=== PATIENT | male | born 1970 | race Caucasian/White ===

== ENCOUNTER 2016-08-03 00:55 | Emergency (ER) | payer OTHER ==
[2016-08-03] MEDS ORDERED: Aspirin 81 MG Tab.Chew PO ONE (01:35)
[2016-08-03] MEDS ORDERED: Sodium Chloride 0.9% 300 ML IV ONE (01:35)
[2016-08-03] MEDS ORDERED: Morphine 4 MG/ML Syringe IVPUSH PRN ×2 (01:35→02:36)
[2016-08-03] MEDS ORDERED: Sodium Chloride 0.9% 1,000 ML IV SCH (01:45)
[2016-08-03] MEDS: Nitroglycerin 0.4 MG Tab.SL SL PRN ×3 (01:46→01:57)
--- NOTE | 2016-08-03 01:47 | EDM.PDOC ---
ED HISTORY OF PRESENT ILLNESS - General Chief Complaint: Chest Pain Stated Complaint: CHEST PAIN Time Seen by Provider: 08/03/16 01:34 Source: Reports: Patient, Family History Limitations: Reports: No limitations - History of Present Illness INITIAL COMMENTS - FREE TEXT/NARRATIVE: Patient today with chest pain substernal and more on the right side of the sternum. The patient has had intermittent chest pains for several weeks. Exertion increases the pain resting believes it. The patient is a diabetic on insulin. The patient recently had an ultrasound of the leg for possible DVT none followed. The patient presented to the emergency room for evaluation and treatment of this chest pain he has not taken aspirin today. Symptom Onset Date: 08/02/16 Timing/Duration: Reports: Hour(s):, Gradual onset Severity: moderate Location, General: Reports: chest Quality: Reports: Ache, Pressure Improves with: Reports: Rest Worsens with: Reports: Breathing, Movement Context, General: Reports: Activity Treatment(s) [employer]: Reports: Insulin, Other medication(s) - Related Data Allergies/ADRs: Allergies Allergy/AdvReac Type Severity Reaction Status Date / Time diazepam [From Valium] Allergy Swelling Verified 08/03/16 01:02 Home Meds: Home Meds Gabapentin [Gabapentin] 1,200 mg PO BID 08/10/13 [History] Insulin Glarg,Human.Rec.Analog [Lantus Solostar] 30 units SUBCNJ BID 08/10/13 [ History] Ascorbate Calcium [Vitamin C] 500 mg PO DAILY 10/29/15 [History] Aspirin [Halfprin] 81 mg PO DAILY 10/29/15 [History] Dulaglutide [Trulicity] 1.5 mg SQ WEEKLY 10/29/15 [History] Famotidine [Take Home: Famotidine 20 MG, 3 Tab Pack] 20 mg PO BID 01/07/16 [ History] Insulin Aspart [Novolog] 5 unit SQ ASDIRECTED PRN 01/07/16 [History] Cyanocobalamin (Vitamin B-12) [B-12] 1,000 mcg PO DAILY 08/03/16 [History] Past Medical History HEENT History: Reports: Impaired vision Cardiovascular History: Reports: High cholesterol Gastrointestinal History: Reports: GERD Musculoskeletal History: Reports: Fracture Neurological History: Reports: Head trauma, Neuropathy, diabetic Endocrine/Metabolic History: Reports: Diabetes, type II - Infectious Disease History Infectious Disease History: Reports: Chicken pox - Past Surgical History HEENT Surgical History: Reports: Other (see below) Other HEENT Surgeries/Procedures: saliva duct opened GI Surgical History: Reports: Appendectomy, Cholecystectomy, EGD, Hernia, inguinal, Hernia repair/other Musculoskeletal Surgical History: Reports: Other (see below) Other Musculoskeletal Surgeries/Procedures:: part of skull removed as child due to fractures Social & Family History - Family History Endocrine/Metabolic: Reports: Diabetes, type II Oncologic: Reports: Breast, Renal - Tobacco Use Smoking Status *Q: Current Every Day Smoker Years of Tobacco use: 25 Packs/Tins Daily: 0.5 Used Tobacco, but Quit: No Second Hand Smoke Exposure: Yes - Caffeine Use Caffeine Use: Reports: Coffee, Soda - Alcohol Use Days Per Week of Alcohol Use: 0 - Recreational Drug Use Recreational Drug Use: No ED ROS GENERAL - Review of Systems Review Of Systems: See Below Constitutional: Reports: weakness, fatigue HEENT: Reports: No symptoms Respiratory: Reports: Pleuritic Chest Pain. Denies: Wheezing Cardiovascular: Reports: Chest pain, Dyspnea on exertion. Denies: Orthopnea, Palpitations, Syncope Endocrine: Reports: fatigue GI/Abdominal: Reports: No symptoms : Reports: frequency, urgency Musculoskeletal: Reports: back pain, leg pain, muscle pain Skin: Reports: no symptoms Neurological: Reports: No Symptoms Psychiatric: Reports: No symptoms Hematologic/Lymphatic: Reports: no symptoms Immunologic: Reports: no symptoms ED EXAM, GENERAL - Physical Exam Exam: See Below Exam Limited By: No limitations General Appearance: alert, WD/WN, anxious, moderate distress Eye Exam: bilateral eye: normal fundi Ears: normal external exam, hearing grossly normal Nose: normal inspection Throat/Mouth: Normal inspection, Normal lips, Normal voice Head: atraumatic, normocephalic. No: facial swelling, sinus tenderness Neck: normal inspection, supple, non-tender Respiratory/Chest: no respiratory distress, lungs clear, normal breath sounds Cardiovascular: normal peripheral pulses, regular rate, rhythm, no murmur GI/Abdominal: normal bowel sounds, soft, non tender, no organomegaly Back Exam: normal inspection Extremities: leg pain Neurological: alert, oriented Psychiatric: normal affect, anxious Skin Exam: Warm, Dry, Intact, Normal color, No rash Course - Vital Signs Last Recorded V/S: Last Vital Signs Temp 98.6 F 08/03/16 01:08 Pulse 82 08/03/16 01:20 Resp 18 08/03/16 02:41 BP 147/83 H 08/03/16 02:54 Pulse Ox 96 08/03/16 02:41 - Orders/Labs/Meds Orders: Active Orders 24 hr Category Date Time Status Cardiac Monitoring [RC] .As Directed Care 08/03/16 01:35 Ordered Cardiac Monitoring [RC] .As Directed Care 08/03/16 02:36 Ordered EKG Documentation Completion [RC] ASDIRECTED Care 08/03/16 01:36 Ordered Pulse Oximetry [RC] CONTINUOUS Care 08/03/16 01:35 Ordered Chest 1V Frontal [CR] Stat Exams 08/03/16 01:36 Ordered Heparin Sodium/D5W [Heparin 25,000 Units in D5W 500 ML] Med 08/03/16 03:00 Ordered 500 ml IV NOW Morphine Med 08/03/16 01:35 Active 4 mg IVPUSH Q10M PRN Morphine Med 08/03/16 02:36 Ordered 4 mg IVPUSH Q10M PRN Nitroglycerin [Nitrostat] Med 08/03/16 01:35 Ordered 0.4 mg SL Q5M PRN Nitroglycerin/D5W [Nitroglycerin 25 MG/D5W 250 ML] 250 Med 08/03/16 02:45 Ordered ml IV TITRATE Sodium Chloride 0.9% @ 125 MLS/HR (1000ml) Med 08/03/16 01:45 Ordered Sodium Chloride 0.9% [Normal Saline] 1,000 ml IV ASDIRECTED EKG 12 Lead [EK] Stat Ther 08/03/16 01:36 Ordered Medication Orders Sodium Chloride (Normal Saline) 1,000 mls @ 125 mls/hr IV ASDIRECTED JOSIAS Last Admin: 08/03/16 01:47 Dose: 125 mls/hr Nitroglycerin/Dextrose (Nitroglycerin 25 Mg/D5w 250 Ml) 25 mg in 250 mls @ 6 mls/hr IV TITRATE JOSIAS; 10 MCG/MIN PRN Reason: Protocol Last Admin: 08/03/16 02:54 Dose: 10 mcg/min, 6 mls/hr Heparin Sodium/Dextrose (Heparin 25,000 Units In D5w 500 Ml) 500 mls @ 20 mls/ hr IV NOW JOSIAS PRN Reason: 1,000 UNITS/HR Morphine Sulfate (Morphine) 4 mg IVPUSH Q10M PRN PRN Reason: Chest Pain Stop: 08/04/16 01:36 Last Admin: 08/03/16 01:49 Dose: 4 mg Morphine Sulfate (Morphine) 4 mg IVPUSH Q10M PRN PRN Reason: Chest Pain Stop: 08/04/16 02:37 Nitroglycerin (Nitrostat) 0.4 mg SL Q5M PRN PRN Reason: Chest Pain Stop: 08/04/16 01:36 Last Admin: 08/03/16 01:57 Dose: 0.4 mg Admin: 08/03/16 01:52 Dose: 0.4 mg Admin: 08/03/16 01:46 Dose: 0.4 mg Labs: Laboratory Tests 08/03/16 08/03/16 08/03/16 Range/Units 01:35 01:35 01:35 WBC 6.2 (4.5-11.0) K/uL RBC 4.43 (4.30-5.90) M/uL Hgb 13.4 D (12.0-15.0) g/dL Hct 39.0 L (40.0-54.0) % MCV 88 (80-98) fL MCH 30 (27-31) pg MCHC 34 (32-36) % Plt Count 210 (150-400) K/uL Neut % (Auto) 63 (36-66) % Lymph % (Auto) 26 (24-44) % [place] % (Auto) 9 H (2-6) % Eos % (Auto) 3 (2-4) % Baso % (Auto) 1 (0-1) % PT 9.9 (9.5-12.0) sec INR 0.94 (0.80-1.20) APTT 28.5 (27.0-36.0) sec Sodium 143 (140-148) mmol/L Potassium 4.0 (3.6-5.2) mmol/L Chloride 105 (100-108) mmol/L Carbon Dioxide 29 (21-32) mmol/L Anion Gap 8.6 (5.0-14.0) mmol/L BUN 11 (7-18) mg/dL Creatinine 0.9 (0.8-1.3) mg/dL Est Cr Clr Drug Dosing 108.07 mL/min Estimated GFR (MDRD) > 60 (>60) Glucose 107 H (74-106) mg/dL Calcium 8.8 (8.5-10.1) mg/dL Phosphorus 4.5 (2.5-4.9) mg/dL Magnesium 1.7 L (1.8-2.4) mg/dL Total Bilirubin 0.3 (0.2-1.0) mg/dL AST 21 (15-37) U/L ALT 26 (12-78) U/L Alkaline Phosphatase 66 (46-116) U/L Creatine Kinase 319 H (39-308) U/L Troponin I 0.212 H* (0.000-0.056) ng/mL Total Protein 6.8 (6.4-8.2) g/dL Albumin 3.4 (3.4-5.0) g/dL Globulin 3.4 (2.3-3.5) g/dL Albumin/Globulin Ratio 1.0 L (1.2-2.2) Meds: Medications Generic Name Dose Route Start Last Admin Trade Name Freq PRN Reason Stop Dose Admin Sodium Chloride 1,000 mls @ 125 mls/hr 08/03/16 01:45 08/03/16 01:47 Normal Saline IV 125 mls/hr ASDIRECTED JOSIAS Administration Nitroglycerin/Dextrose 25 mg in 250 mls @ 6 mls/hr 08/03/16 02:45 08/03/16 02 :54 Nitroglycerin 25 Mg/D5w 250 Ml IV 10 mcg/min TITRATE JOSIAS 6 mls/hr Protocol Administration 10 MCG/MIN Heparin Sodium/Dextrose 500 mls @ 20 mls/hr 08/03/16 03:00 Heparin 25,000 Units In D5w 500 Ml IV NOW JOSIAS 1,000 UNITS/HR Morphine Sulfate 4 mg 08/03/16 01:35 08/03/16 01:49 Morphine IVPUSH 08/04/16 01:36 4 mg Q10M PRN Administration Chest Pain Morphine Sulfate 4 mg 08/03/16 02:36 Morphine IVPUSH 08/04/16 02:37 Q10M PRN Chest Pain Nitroglycerin 0.4 mg 08/03/16 01:35 08/03/16 01:57 Nitrostat SL 08/04/16 01:36 0.4 mg Q5M PRN Administration Chest Pain Discontinued Medications Generic Name Dose Route Start Last Admin Trade Name Franki PRN Reason Stop Dose Admin Aspirin 324 mg 08/03/16 01:35 08/03/16 01:46 Aspirin PO 08/03/16 01:36 324 mg ONETIME ONE Administration Clopidogrel Bisulfate 300 mg 08/03/16 02:42 08/03/16 02:46 Plavix PO 08/03/16 02:43 300 mg ONETIME ONE Administration Heparin Sodium (Porcine) 4,000 units 08/03/16 02:47 08/03/16 02:54 Heparin Sodium IVPUSH 08/03/16 02:48 4,000 units ONETIME ONE Administration Sodium Chloride 300 mls @ 1,000 mls/hr 08/03/16 01:35 08/03/16 01:52 Normal Saline IV 08/03/16 01:52 1,000 mls/hr .BOLUS ONE Administration Lorazepam 1 mg 08/03/16 02:47 08/03/16 02:54 Ativan IVPUSH 08/03/16 02:48 1 mg ONETIME ONE Administration Tenecteplase 50 mg 08/03/16 02:50 Tnkase IV 08/03/16 02:51 NOW STA Protocol - Re-Assessments/Exams Free Text/Narrative Re-Assessment/Exam: 08/03/16 03:01 Patient presented with right-sided chest pain. He was worked up for ischemic heart disease as he had significant ST segment depression in inferior leads in one lead aVL had ST segment elevation. I could not and did not call ST segment elevation in lead 1. When the troponin reported back positively arrangements are made to transfer as a non-STEMI. The down filler reviewed the EKG and label the patient is STEMI and additional treatments were applied. The patient received TNKase IV prior to being transferred. Departure - Departure Time of Disposition: 03:03 Disposition: DC/Tfer to Acute Hospital 02 Reason for Transfer *Q: Primary PCI Indicated Condition: fair Clinical Impression: STEMI (ST elevation myocardial infarction) Referrals: Sam Montes MD [Primary Care Provider] - Forms: ED Department Discharge Additional Instructions: Patient transferred to [facility] in [place]. The patient was thought to have a non-STEMI. The down filler called the STEMI with the lead 1 elevation being on the border in the aVL having ST segment changes elevation. There is inferior ST segment depression. The patient received aspirin 324 mg orally, Plavix 300 mg orally, TNKase 50 mg IV bolus, Ativan 1 mg IV, morphine 4 mg titrated. and nitroglycerin tablets and IV drip and heparin bolus and IV drip. Patient was informed of the cardiac damage and the need for transfer to a down filler. - Problem List & Annotations (1) STEMI (ST elevation myocardial infarction) SNOMED Code(s): 410372817 Code(s): I21.3 - ST ELEVATION (STEMI) MYOCARDIAL INFARCTION OF UNSP SITE Status: Acute Priority: High Current Visit: Yes Qualifiers: Involved coronary artery: unspecified coronary artery Qualified Code(s): I21.3 - ST elevation (STEMI) myocardial infarction of unspecified site - Problem List Review Problem List Initiated/Reviewed/Updated: Yes - My Orders Last 24 Hours: My Active Orders 08/03/16 01:35 Cardiac Monitoring [RC] .As Directed Pulse Oximetry [RC] CONTINUOUS Morphine 4 mg IVPUSH Q10M PRN Nitroglycerin [Nitrostat] 0.4 mg SL Q5M PRN 08/03/16 01:36 EKG Documentation Completion [RC] ASDIRECTED Chest 1V Frontal [CR] Stat EKG 12 Lead [EK] Stat 08/03/16 01:45 Sodium Chloride 0.9% @ 125 MLS/HR (1000ml) Sodium Chloride 0.9% [Normal Saline] 1,000 ml IV ASDIRECTED 08/03/16 02:36 Cardiac Monitoring [RC] .As Directed Morphine 4 mg IVPUSH Q10M PRN 08/03/16 02:45 Nitroglycerin/D5W [Nitroglycerin 25 MG/D5W 250 ML] 250 ml IV TITRATE 08/03/16 03:00 Heparin Sodium/D5W [Heparin 25,000 Units in D5W 500 ML] 500 ml IV NOW - Assessment/Plan Last 24 Hours: My Active Orders 08/03/16 01:35 Cardiac Monitoring [RC] .As Directed Pulse Oximetry [RC] CONTINUOUS Morphine 4 mg IVPUSH Q10M PRN Nitroglycerin [Nitrostat] 0.4 mg SL Q5M PRN 08/03/16 01:36 EKG Documentation Completion [RC] ASDIRECTED Chest 1V Frontal [CR] Stat EKG 12 Lead [EK] Stat 08/03/16 01:45 Sodium Chloride 0.9% @ 125 MLS/HR (1000ml) Sodium Chloride 0.9% [Normal Saline] 1,000 ml IV ASDIRECTED 08/03/16 02:36 Cardiac Monitoring [RC] .As Directed Morphine 4 mg IVPUSH Q10M PRN 08/03/16 02:45 Nitroglycerin/D5W [Nitroglycerin 25 MG/D5W 250 ML] 250 ml IV TITRATE 08/03/16 03:00 Heparin Sodium/D5W [Heparin 25,000 Units in D5W 500 ML] 500 ml IV NOW
[2016-08-03] MEDS ORDERED: Clopidogrel 75 MG Tab PO ONE (02:42)
[2016-08-03] MEDS ORDERED: Nitroglycerin/D5W 25 MG/250 ML BOTTLE IV SCH (02:45)
[2016-08-03] MEDS ORDERED: Heparin Sodium 5,000 Units/ML Vial IVPUSH ONE (02:47)
[2016-08-03] MEDS ORDERED: LORazepam 2 MG/ML MDV IVPUSH ONE (02:47)
[2016-08-03] MEDS ORDERED: Tenecteplase 50 MG Kit IV STA (02:50)
[2016-08-03] MEDS ORDERED: Heparin Sodium/D5W 25,000 UNITS/500 ML BAG IV SCH (03:00)
[2016-08-03 04:17] VITALS: BP 154/86
--- NOTE | 2016-08-03 09:33 | CR ---
Chest 1V Frontal HISTORY: Chest pain. Comparison: 05/24/2009. FINDINGS: Cardiac size and pulmonary vessels are normal. The lungs are clear. IMPRESSION: Negative AP chest.
== END 2016-08-03 03:45 ==
LOC: JP.ED 00:55
DX: M79.651 Pain in right thigh (principal); M79.661 Pain in right lower leg; R59.0 Localized enlarged lymph nodes; M79.89 Other specified soft tissue disorders
CPT/HCPCS: 36415; 71010; 80053; 82550; 83735; 84100; 84484; 85025; 85610; 85730; 93005; 96361; 96374; 96375; 99285; A9270; J1644; J2060; J2270; J3101; J7040; J7050

== ENCOUNTER 2016-09-11 17:00 | Emergency (ER) | payer OTHER ==
--- NOTE | 2016-09-11 17:19 | EDM.PDOC ---
<Sam Piña - Last Filed: 09/11/16 17:47> ED HPI GENERAL MEDICAL PROBLEM - General Chief Complaint: Chest Pain Stated Complaint: PAIN IN CHEST AREA/BACK PAIN/VOMITING Time Seen by Provider: 09/11/16 17:19 Source of Information: Reports: Patient, Family History Limitations: Reports: No limitations - History of Present Illness INITIAL COMMENTS - FREE TEXT/NARRATIVE: 46-year-old male, type 2 diabetes and known coronary artery disease who received 2 stents within the last 2 months had been doing well. 3 days ago he ate a large salad that had a lot of leafy vegetables and lettuce, and afterward developed a fullness and discomfort in the epigastric area. It has persisted for the past 2 days and today it was worse, at work he became nauseated and vomited several times. He still has a pressure in the epigastric area. It radiates somewhat to the back, he is not getting shortness of breath, diaphoresis or other symptoms. He looks comfortable. He has a history of a cholecystectomy and appendectomy in the past. Onset: gradual (Onset was after supper 3 nights ago) Location: Reports: chest, abdomen Quality: Reports: Ache, Pressure Severity: moderate Improves with: Reports: None Worsens with: Reports: Other (Feels worse when he sits up or takes a deep breath ) Associated Symptoms: Reports: chest pain, nausea/vomiting. Denies: cough, fever /chills, shortness of breath Epigastric Pain Score (Numeric/FACES): 7 - Related Data Allergies Allergy/AdvReac Type Severity Reaction Status Date / Time diazepam [From Valium] Allergy Swelling Verified 09/11/16 17:09 Home Meds: Home Meds Gabapentin [Gabapentin] 1,200 mg PO BID 08/10/13 [History] Insulin Glarg,Human.Rec.Analog [Lantus Solostar] 30 units SUBCNJ BID 08/10/13 [ History] Ascorbate Calcium [Vitamin C] 500 mg PO DAILY 10/29/15 [History] Aspirin [Halfprin] 81 mg PO DAILY 10/29/15 [History] Dulaglutide [Trulicity] 1.5 mg SQ WEEKLY 10/29/15 [History] Famotidine [Take Home: Famotidine 20 MG, 3 Tab Pack] 20 mg PO BID 01/07/16 [ History] Cyanocobalamin (Vitamin B-12) [B-12] 1,000 mcg PO DAILY 08/03/16 [History] Lisinopril 2.5 mg PO BID 09/11/16 [History] Metoprolol Tartrate 25 mg PO BID 09/11/16 [History] atorvaSTATin [Lipitor] 40 mg PO BEDTIME 09/11/16 [History] Past Medical History HEENT History: Reports: Impaired vision Cardiovascular History: Reports: High cholesterol, Hypertension, [place], Stents Gastrointestinal History: Reports: GERD Genitourinary History: Reports: Other (see below) Other Genitourinary History: erectile dysfunction Musculoskeletal History: Reports: Fracture Other Musculoskeletal History: repetitive motion disorder. SI joint pain. piriformis syndrome Neurological History: Reports: Head trauma, Neuropathy, diabetic Other Neuro History: insomnia. charcot foot due to DM. diabetic poluneuropathy Psychiatric History: Reports: Depression Endocrine/Metabolic History: Reports: Diabetes, type II - Infectious Disease History Infectious Disease History: Reports: Chicken pox - Past Surgical History HEENT Surgical History: Reports: Other (see below) Other HEENT Surgeries/Procedures: saliva duct opened GI Surgical History: Reports: Appendectomy, Cholecystectomy, EGD, Hernia, inguinal, Hernia repair/other Musculoskeletal Surgical History: Reports: Other (see below) Other Musculoskeletal Surgeries/Procedures:: part of skull removed as child due to fractures Social & Family History - Family History Endocrine/Metabolic: Reports: Diabetes, type II Oncologic: Reports: Breast, Renal - Tobacco Use Smoking Status *Q: Current Every Day Smoker Years of Tobacco use: 25 Packs/Tins Daily: 0.5 Used Tobacco, but Quit: No Second Hand Smoke Exposure: Yes - Caffeine Use Caffeine Use: Reports: Coffee, Soda - Alcohol Use Days Per Week of Alcohol Use: 0 - Recreational Drug Use Recreational Drug Use: No ED ROS GENERAL - Review of Systems Review Of Systems: See Below Constitutional: Denies: fever, chills, malaise HEENT: Reports: No symptoms Respiratory: Denies: Shortness of Breath Cardiovascular: Reports: Chest pain. Denies: Dyspnea on exertion Endocrine: Denies: fatigue GI/Abdominal: Reports: Abdominal pain, Nausea, Vomiting : Reports: no symptoms Skin: Reports: no symptoms Neurological: Denies: Headache Psychiatric: Reports: No symptoms ED EXAM, GENERAL - Physical Exam Exam: See Below Exam Limited By: No limitations General Appearance: alert, no apparent distress Eye Exam: bilateral eye: EOMI, normal inspection (Normal hydration, no jaundice) Throat/Mouth: Normal inspection Respiratory/Chest: no respiratory distress, lungs clear Cardiovascular: regular rate, rhythm GI/Abdominal: soft, tender (Some palpation tenderness across the abdomen, no focal guarding or rebound) Extremities: normal inspection. No: pedal edema Neurological: alert, oriented Psychiatric: normal affect, normal mood Skin Exam: Warm, Dry EKG INTERPRETATION EKG Date: 09/11/16 Rhythm: NSR (Occasional PVC) Bland: LAD-left axis deviation EKG Interpretation Comments: T-wave flattening and inversion V4 through V6 which was not present prior to stenting. There is no ST elevation or depression. Course - Vital Signs Last Recorded V/S: Last Vital Signs Temp 99.3 F 09/11/16 17:07 Pulse 89 09/11/16 19:25 Resp 16 09/11/16 19:25 BP 135/89 09/11/16 19:25 Pulse Ox 91 L 09/11/16 19:25 - Orders/Labs/Meds Orders: Active Orders 24 hr Category Date Time Status EKG Documentation Completion [RC] ASDIRECTED Care 09/11/16 17:47 Active Peripheral IV Care [RC] . DIRECTED Care 09/11/16 18:43 Active Abdomen Pelvis w Cont [CT] Stat Exams 09/11/16 18:56 Taken Iopamidol [Isovue-300 (61%)] Med 09/11/16 19:30 Active 150 ml IV . DIRECTED Sodium Chloride 0.9% [Normal Saline] 1,000 ml Med 09/11/16 18:45 Active IV ASDIRECTED Sodium Chloride 0.9% [Saline Flush] Med 09/11/16 18:43 Active 10 ml FLUSH ASDIRECTED PRN Sodium Chloride 0.9% [Saline Flush] Med 09/11/16 19:28 Active 10 ml FLUSH ONETIME PRN Peripheral IV Insertion Adult [OM.PC] Urgent Oth 09/11/16 18:43 Ordered EKG 12 Lead [EK] Routine Ther 09/11/16 17:47 Ordered Medication Orders Sodium Chloride (Normal Saline) 1,000 mls @ 500 mls/hr IV ASDIRECTED JOSIAS Last Admin: 09/11/16 18:52 Dose: 500 mls/hr Iopamidol (Isovue-300 (61%)) 150 ml IV . DIRECTED JOSIAS Last Admin: 09/11/16 19:53 Dose: 150 ml Sodium Chloride (Saline Flush) 10 ml FLUSH ASDIRECTED PRN PRN Reason: Keep Vein Open Last Admin: 09/11/16 18:53 Dose: 10 ml Sodium Chloride (Saline Flush) 10 ml FLUSH ONETIME PRN PRN Reason: PER RADIOLOGY PROTOCOL Last Admin: 09/11/16 19:53 Dose: 10 ml Labs: Laboratory Tests 09/11/16 09/11/16 09/11/16 Range/Units 17:58 17:58 17:58 WBC 8.0 (4.5-11.0) K/uL RBC 4.90 (4.30-5.90) M/uL Hgb 14.5 (12.0-15.0) g/dL Hct 42.6 (40.0-54.0) % MCV 87 (80-98) fL MCH 30 (27-31) pg MCHC 34 (32-36) % Plt Count 196 (150-400) K/uL Neut % (Auto) 68 H (36-66) % Lymph % (Auto) 22 L (24-44) % Clare % (Auto) 8 H (2-6) % Eos % (Auto) 2 (2-4) % Baso % (Auto) 1 (0-1) % Sodium 140 (140-148) mmol/L Potassium 4.3 (3.6-5.2) mmol/L Chloride 104 (100-108) mmol/L Carbon Dioxide 27 (21-32) mmol/L Anion Gap 8.6 (5.0-14.0) mmol/L BUN 10 (7-18) mg/dL Creatinine 0.9 (0.8-1.3) mg/dL Est Cr Clr Drug Dosing 111.37 mL/min Estimated GFR (MDRD) > 60 (>60) Glucose 138 H (74-106) mg/dL Lactic Acid (0.4-2.0) mmol/L Calcium 8.8 (8.5-10.1) mg/dL Total Bilirubin 0.4 (0.2-1.0) mg/dL AST 29 (15-37) U/L ALT 51 D (12-78) U/L Alkaline Phosphatase 75 (46-116) U/L Troponin I 0.036 (0.000-0.056) ng/mL Total Protein 7.4 (6.4-8.2) g/dL Albumin 4.0 (3.4-5.0) g/dL Globulin 3.4 (2.3-3.5) g/dL Albumin/Globulin Ratio 1.2 (1.2-2.2) Amylase 139 H (25-115) U/L Lipase 546 H (73-393) U/L 09/11/16 Range/Units 18:41 WBC (4.5-11.0) K/uL RBC (4.30-5.90) M/uL Hgb (12.0-15.0) g/dL Hct (40.0-54.0) % MCV (80-98) fL MCH (27-31) pg MCHC (32-36) % Plt Count (150-400) K/uL Neut % (Auto) (36-66) % Lymph % (Auto) (24-44) % Clare % (Auto) (2-6) % Eos % (Auto) (2-4) % Baso % (Auto) (0-1) % Sodium (140-148) mmol/L Potassium (3.6-5.2) mmol/L Chloride (100-108) mmol/L Carbon Dioxide (21-32) mmol/L Anion Gap (5.0-14.0) mmol/L BUN (7-18) mg/dL Creatinine (0.8-1.3) mg/dL Est Cr Clr Drug Dosing mL/min Estimated GFR (MDRD) (>60) Glucose (74-106) mg/dL Lactic Acid 1.1 (0.4-2.0) mmol/L Calcium (8.5-10.1) mg/dL Total Bilirubin (0.2-1.0) mg/dL AST (15-37) U/L ALT (12-78) U/L Alkaline Phosphatase (46-116) U/L Troponin I (0.000-0.056) ng/mL Total Protein (6.4-8.2) g/dL Albumin (3.4-5.0) g/dL Globulin (2.3-3.5) g/dL Albumin/Globulin Ratio (1.2-2.2) Amylase (25-115) U/L Lipase (73-393) U/L Meds: Medications Generic Name Dose Route Start Last Admin Trade Name Freq PRN Reason Stop Dose Admin Sodium Chloride 1,000 mls @ 500 mls/hr 09/11/16 18:45 09/11/16 18:52 Normal Saline IV 500 mls/hr ASDIRECTED JOSIAS Administration Iopamidol 150 ml 09/11/16 19:30 09/11/16 19:53 Isovue-300 (61%) IV 150 ml . DIRECTED JOSIAS Administration Sodium Chloride 10 ml 09/11/16 18:43 09/11/16 18:53 Saline Flush FLUSH 10 ml ASDIRECTED PRN Administration Keep Vein Open Sodium Chloride 10 ml 09/11/16 19:28 09/11/16 19:53 Saline Flush FLUSH 10 ml ONETIME PRN Administration PER RADIOLOGY PROTOCOL Discontinued Medications Generic Name Dose Route Start Last Admin Trade Name Freq PRN Reason Stop Dose Admin Hydromorphone HCl 1 mg 09/11/16 18:43 09/11/16 19:00 Dilaudid IVPUSH 09/11/16 18:44 1 mg ONETIME ONE Administration Sodium Chloride 85 mls @ 3 mls/sec 09/11/16 19:28 09/11/16 19:52 Normal Saline IV 09/11/16 19:29 3 mls/sec ONETIME ONE Administration Ondansetron HCl 4 mg 09/11/16 18:43 09/11/16 18:58 Zofran IVPUSH 09/11/16 18:44 4 mg ONETIME ONE Administration - Re-Assessments/Exams Free Text/Narrative Re-Assessment/Exam: 09/11/16 17:53 This pain seems more gastrointestinal than cardiac. CBC, CMP, amylase, lipase, troponin were obtained. Care was turned over to Officer. Departure - Departure Disposition: Home, Self-Care 01 Clinical Impression: Functional constipation Forms: ED Department Discharge Additional Instructions: Try the MiraLax one capful per day until loose stools, keep your followup appointment with your primary care provider, call or return emergency department with worsening of symptoms. - My Orders Last 24 Hours: My Active Orders 09/11/16 18:43 Peripheral IV Care [RC] . DIRECTED Sodium Chloride 0.9% [Saline Flush] 10 ml FLUSH ASDIRECTED PRN Peripheral IV Insertion Adult [OM.PC] Urgent 09/11/16 18:45 Sodium Chloride 0.9% [Normal Saline] 1,000 ml IV ASDIRECTED 09/11/16 18:56 Abdomen Pelvis w Cont [CT] Stat 09/11/16 19:28 Sodium Chloride 0.9% [Saline Flush] 10 ml FLUSH ONETIME PRN 09/11/16 19:30 Iopamidol [Isovue-300 (61%)] 150 ml IV . DIRECTED - Assessment/Plan Last 24 Hours: My Active Orders 09/11/16 18:43 Peripheral IV Care [RC] . DIRECTED Sodium Chloride 0.9% [Saline Flush] 10 ml FLUSH ASDIRECTED PRN Peripheral IV Insertion Adult [OM.PC] Urgent 09/11/16 18:45 Sodium Chloride 0.9% [Normal Saline] 1,000 ml IV ASDIRECTED 09/11/16 18:56 Abdomen Pelvis w Cont [CT] Stat 09/11/16 19:28 Sodium Chloride 0.9% [Saline Flush] 10 ml FLUSH ONETIME PRN 09/11/16 19:30 Iopamidol [Isovue-300 (61%)] 150 ml IV . DIRECTED <OfficerSarkis - Last Filed: 09/11/16 20:58> Course - Re-Assessments/Exams Free Text/Narrative Re-Assessment/Exam: Took over care, did review lab work most remarkable thing is lipase is elevated he continues to be tender in the epigastric left upper quadrant region with guarding, ordered lactic acid and CT scan of the abdomen as well as Zofran hydromorphone for pain 09/11/16 18:44 Departure - Departure Time of Disposition: 20:57 Condition: good - Assessment/Plan Plan: Assessment Acuity = acute Site and laterality = functional constipation complicated patient with known history of coronary artery disease Etiology = slow transit time Manifestations = none Location of injury = home Lab values = CBC, CMP unremarkable, troponin negative lipase mildly elevated at [address] scan shows no acute process in the abdomen other than moderate amount of stool Plan I did review lab and CT scan results with him he had complete relief with 1 mg of Dilaudid plan is to discharge home and use MiraLax until loose stools as a followup appointment with primary care next week Patient was in agreement with the plan all questions were answered, they were instructed to return to the emergency department or call for worsening symptoms. This note was dictated using [employer]ifest voice recognition software please call with any questions.
[2016-09-11] MEDS ORDERED: Sodium Chloride 0.9% 10 ML Syringe FLUSH PRN ×2 (18:43→19:28)
[2016-09-11] MEDS ORDERED: Ondansetron 4 MG/2 ML SDV IVPUSH ONE (18:43)
[2016-09-11] MEDS ORDERED: HYDROmorphone 1 MG/ML Syringe IVPUSH ONE (18:43)
[2016-09-11] MEDS ORDERED: Sodium Chloride 0.9% 1,000 ML IV SCH (18:45)
[2016-09-11] MEDS ORDERED: Iopamidol 612 MG/ML 150 ML Bottle IV SCH (19:30)
[2016-09-11 19:51] VITALS: BP 135/89
== END 2016-09-11 21:08 | disposition home or self-care (01) ==
LOC: JP.ED 17:00
DX: K59.04 Chronic idiopathic constipation (principal); E11.9 Type 2 diabetes mellitus without complications; E78.00 Pure hypercholesterolemia, unspecified; I10 Essential (primary) hypertension; K21.9 Gastro-esophageal reflux disease without esophagitis; I25.2 Old myocardial infarction; F41.9 Anxiety disorder, unspecified; F17.210 Nicotine dependence, cigarettes, uncomplicated; Z88.5 Allergy status to narcotic agent; Z79.4 Long term (current) use of insulin; Z79.82 Long term (current) use of aspirin; Z79.899 Other long term (current) drug therapy; Z90.49 Acquired absence of other specified parts of digestive tract
CPT/HCPCS: 36415; 74177; 80053; 82150; 83605; 83690; 84484; 85025; 93005; 96361; 96374; 96375; 99285; J1170; J2405; J7030; J7040; J7050

== ENCOUNTER 2016-11-12 14:12 | Emergency (ER) | payer OTHER ==
[2016-11-12 14:45] VITALS: BP 131/89
--- NOTE | 2016-11-12 14:52 | EDM.PDOC ---
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 It hit him hard enough to knock him down but he did not lose consciousness. He has some diffuse neck pressure or discomfort but no neurologic symptoms, he is developing a small amount of lower back pain as well. His work requires them to get checked after injury. Onset: Sudden Duration: Hour(s): (Within the last 2 hours) Location: Reports: Neck, Back Quality: Reports: Ache Severity: Mild Associated Symptoms: Reports: No Other Symptoms Neck Pain Score (Numeric/FACES): 3 - Related Data Allergies Allergy/AdvReac Type Severity Reaction Status Date / Time diazepam [From Valium] Allergy Swelling Verified 09/11/16 17:09 Home Meds: Home Meds Gabapentin [Gabapentin] 1,200 mg PO BID 08/10/13 [History] Insulin Glarg,Human.Rec.Analog [Lantus Solostar] 30 units SUBCNJ BID 08/10/13 [ History] Ascorbate Calcium [Vitamin C] 500 mg PO DAILY 10/29/15 [History] Aspirin [Halfprin] 81 mg PO DAILY 10/29/15 [History] Dulaglutide [Trulicity] 1.5 mg SQ WEEKLY 10/29/15 [History] Famotidine [Take Home: Famotidine 20 MG, 3 Tab Pack] 20 mg PO BID 01/07/16 [ History] Cyanocobalamin (Vitamin B-12) [B-12] 1,000 mcg PO DAILY 08/03/16 [History] Lisinopril 2.5 mg PO BID 09/11/16 [History] Metoprolol Tartrate 25 mg PO BID 09/11/16 [History] atorvaSTATin [Lipitor] 40 mg PO BEDTIME 09/11/16 [History] Past Medical History HEENT History: Reports: Impaired Vision Cardiovascular History: Reports: High Cholesterol, Hypertension, [place], Stents Gastrointestinal History: Reports: GERD Genitourinary History: Reports: Other (See Below) Other Genitourinary History: erectile dysfunction Musculoskeletal History: Reports: Fracture Other Musculoskeletal History: repetitive motion disorder. SI joint pain. piriformis syndrome Neurological History: Reports: Head Trauma, Neuropathy, Diabetic Other Neuro History: insomnia. charcot foot due to DM. diabetic poluneuropathy Psychiatric History: Reports: Depression Endocrine/Metabolic History: Reports: Diabetes, Type II - Infectious Disease History Infectious Disease History: Reports: Chicken Pox - Past Surgical History HEENT Surgical History: Reports: Other (See Below) GI Surgical History: Reports: Appendectomy, Cholecystectomy, EGD, Hernia, Inguinal, Hernia Repair/Other Musculoskeletal Surgical History: Reports: Other (See Below) Social & Family History - Family History Endocrine/Metabolic: Reports: Diabetes, type II Oncologic: Reports: Breast, Renal - Tobacco Use Smoking Status *Q: Light Tobacco Smoker Years of Tobacco use: 25 Packs/Tins Daily: 0.5 Used Tobacco, but Quit: No Second Hand Smoke Exposure: Yes - Caffeine Use Caffeine Use: Reports: Coffee, Soda - Alcohol Use Days Per Week of Alcohol Use: 0 - Recreational Drug Use Recreational Drug Use: No ED ROS GENERAL - Review of Systems Review Of Systems: See Below Constitutional: Denies: Fever, Chills Respiratory: Denies: Shortness of Breath Cardiovascular: Denies: Chest Pain GI/Abdominal: Denies: Abdominal Pain Musculoskeletal: Reports: Neck Pain, Back Pain Skin: Reports: No Symptoms ED EXAM, UPPER BACK/NECK PAIN - Physical Exam Exam: See Below Exam Limited By: No Limitations General Appearance: Alert, No Apparent Distress Neck Exam: Non-Tender (Patient has no percussion tenderness of the cervical bodies or thoracic or lumbar vertebral bodies. He has a small amount of palpation tenderness to the paracervical lower cervical spine. No increased pain with rotation of the neck or back against resistance) Neurologic: No Motor/Sensory Deficits, Normal Mood/Affect Skin Exam: Normal Color, Warm/Dry Course - Vital Signs Last Recorded V/S: Last Vital Signs Temp 98.1 F 11/12/16 14:32 Pulse 92 11/12/16 14:32 Resp 18 11/12/16 14:32 BP 131/89 11/12/16 14:32 Pulse Ox 95 11/12/16 14:32 - Re-Assessments/Exams Free Text/Narrative Re-Assessment/Exam: 11/12/16 14:50 With mild neck discomfort and low back discomfort without any neurologic findings, loss of consciousness or vertebral percussion tenderness patient will be discharged to return to work without restrictions in 2 days. He does not work tomorrow. Ice to sore areas and anti-inflammatories and increase activity as tolerated, returning if any increase in symptoms occur. Departure - Departure Time of Disposition: 14:58 Disposition: Home, Self-Care 01 Condition: Good Clinical Impression: Neck muscle strain Qualifiers: Encounter type: initial encounter Qualified Code(s): S16.1XXA - Strain of muscle, fascia and tendon at neck level, initial encounter - Discharge Information Instructions: Cervical Sprain, [id number] Referrals: PCP,None [Primary Care Provider] - Forms: ED Department Discharge Care Plan Goals: Increase activity as tolerated, ice to sore areas may help the next 2 days. Anti -inflammatories may help, and return if you are not improving satisfactorily in 2-3 days or unable to return to work. You should also return at any time if you develop numbness or weakness of an extremity or other concerning neurologic symptoms as discussed.
== END 2016-11-12 14:58 | disposition home or self-care (01) ==
LOC: JP.ED 14:12
DX: S16.1XXA Strain of muscle, fascia and tendon at neck level, initial encounter (principal); I10 Essential (primary) hypertension; E78.00 Pure hypercholesterolemia, unspecified; I25.2 Old myocardial infarction; K21.9 Gastro-esophageal reflux disease without esophagitis; E11.42 Type 2 diabetes mellitus with diabetic polyneuropathy; F32.9 Major depressive disorder, single episode, unspecified; Z95.5 Presence of coronary angioplasty implant and graft; F17.210 Nicotine dependence, cigarettes, uncomplicated; Z79.4 Long term (current) use of insulin; Z79.899 Other long term (current) drug therapy; Z88.8 Allergy status to other drugs, medicaments and biological substances; W22.8XXA Striking against or struck by other objects, initial encounter; Y92.89 Other specified places as the place of occurrence of the external cause; Y99.0 Civilian activity done for income or pay
CPT/HCPCS: 99283

== ENCOUNTER 2016-12-04 04:21 | Emergency (ER) | payer OTHER ==
[2016-12-04 04:44] VITALS: BP 142/89
--- NOTE | 2016-12-04 05:00 | EDM.PDOC ---
[id number] Complaint: RT HAND PAIN / NO RECOLLECTION OF INJURY Time Seen by Provider: 12/04/16 04:58 Source of Information: Reports: Patient History Limitations: Reports: No Limitations - History of Present Illness INITIAL COMMENTS - FREE TEXT/NARRATIVE: pt has a swolln and very painful rt hand. He was doing oil changes for the past 2 days. He has no other injury. Onset: Gradual Duration: Hour(s): Location: Reports: Upper Extremity, Right, Other ( this is most tender by the thumb. 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 Pain Score (Numeric/FACES): 10 - Related Data Allergies Allergy/AdvReac Type Severity Reaction Status Date / Time diazepam [From Valium] Allergy Swelling Verified 09/11/16 17:09 Home Meds: Home Meds Gabapentin [Gabapentin] 1,200 mg PO BID 08/10/13 [History] Insulin Glarg,Human.Rec.Analog [Lantus Solostar] 30 units SUBCNJ BID 08/10/13 [ History] Ascorbate Calcium [Vitamin C] 500 mg PO DAILY 10/29/15 [History] Aspirin [Halfprin] 81 mg PO DAILY 10/29/15 [History] Dulaglutide [Trulicity] 1.5 mg SQ WEEKLY 10/29/15 [History] Famotidine [Take Home: Famotidine 20 MG, 3 Tab Pack] 20 mg PO BID 01/07/16 [ History] Cyanocobalamin (Vitamin B-12) [B-12] 1,000 mcg PO DAILY 08/03/16 [History] Lisinopril 2.5 mg PO BID 09/11/16 [History] Metoprolol Tartrate 25 mg PO BID 09/11/16 [History] atorvaSTATin [Lipitor] 40 mg PO BEDTIME 09/11/16 [History] Acetaminophen [Tylenol] 1,000 mg PO ASDIRECTED PRN 12/04/16 [History] Past Medical History HEENT History: Reports: Impaired Vision Cardiovascular History: Reports: High Cholesterol, [place], Stents Gastrointestinal History: Reports: GERD Genitourinary History: Reports: Other (See Below) Other Genitourinary History: erectile dysfunction Musculoskeletal History: Reports: Fracture Other Musculoskeletal History: repetitive motion disorder. SI joint pain. piriformis syndrome Neurological History: Reports: Head Trauma, Neuropathy, Diabetic Other Neuro History: insomnia. charcot foot due to DM. diabetic poluneuropathy Psychiatric History: Reports: Depression Endocrine/Metabolic History: Reports: Diabetes, Type II - Infectious Disease History Infectious Disease History: Reports: Chicken Pox - Past Surgical History HEENT Surgical History: Reports: Other (See Below) Other HEENT Surgeries/Procedures: blocked salivary duct GI Surgical History: Reports: Appendectomy, Cholecystectomy, EGD, Hernia, Inguinal, Hernia Repair/Other Social & Family History - Family History Endocrine/Metabolic: Reports: Diabetes, type II Oncologic: Reports: Breast, Renal - Tobacco Use Smoking Status *Q: Current Every Day Smoker Years of Tobacco use: 22 Packs/Tins Daily: 0.5 Used Tobacco, but Quit: No Second Hand Smoke Exposure: Yes - Caffeine Use Caffeine Use: Reports: Coffee, Soda - Alcohol Use Days Per Week of Alcohol Use: 0 - Recreational Drug Use Recreational Drug Use: No Review of Systems - Review of Systems Review Of Systems: See Below Constitutional: Reports: No Symptoms Eyes: Reports: No Symptoms Ears: Reports: No Symptoms Nose: Reports: No Symptoms Mouth/Throat: Reports: No Symptoms Respiratory: Reports: No Symptoms Cardiovascular: Reports: No Symptoms GI/Abdominal: Reports: No Symptoms Genitourinary: Reports: No Symptoms Musculoskeletal: Reports: Other ( swollen and painful rt hand. ) Skin: Reports: No Symptoms ED EXAM, GENERAL - Physical Exam Exam: See Below Free Text/Narrative:: pt has a very painful rt hand and the pain is extending up his arm. He has a known history of neuropathy. Exam Limited By: No Limitations General Appearance: Alert, Anxious, Moderate Distress Eye Exam: Right Eye: Papilledema Ears: Normal TMs Nose: Normal Inspection Throat/Mouth: Normal Inspection Head: Atraumatic Neck: Normal Inspection Respiratory/Chest: No Respiratory Distress Cardiovascular: Regular Rate, Rhythm GI/Abdominal: Soft, Non-Tender (Male) Exam: Deferred Extremities: Other ( rt hand is swollen. Pt is having difficulty making a fist. He has been using it alot to do oil changes. The pain is extending up his arm. ) Course - Vital Signs Last Recorded V/S: Last Vital Signs Temp 36.1 C 12/04/16 04:43 Pulse 88 12/04/16 04:43 Resp 16 12/04/16 04:43 BP 142/89 H 12/04/16 04:43 Pulse Ox 96 12/04/16 04:43 - Orders/Labs/Meds Meds: Medications Discontinued Medications Generic Name Dose Route Start Last Admin Trade Name Franki PRN Reason Stop Dose Admin Oxycodone/Acetaminophen 1 tab 12/04/16 05:03 12/04/16 05:19 Percocet 325-5 Mg PO 12/04/16 05:04 1 tab ONETIME ONE Administration Triamcinolone Acetonide 60 mg 12/04/16 05:04 12/04/16 05:18 Kenalog-40 INJECT 12/04/16 05:05 60 mg ASDIRECTED ONE Administration - Re-Assessments/Exams Free Text/Narrative Re-Assessment/Exam: 12/04/16 05:07 pt was given kenalog 60mg im, percocet 5/325. Departure - Departure Time of Disposition: 05:08 Disposition: Home, Self-Care 01 Condition: Fair Clinical Impression: Inflammation of hand joint - Discharge Information Instructions: Tendinitis, [id number] Referrals: PCP,None [Primary Care Provider] - Forms: ED Department Discharge Care Plan Goals: soak hand in mildly warm water, do range of motion of the fingers, follow this with a cool pack, naprosyn 500mg tid for 4 days then bid, norco 5/ 325 q6h prn for pain.
[2016-12-04] MEDS ORDERED: Acetaminophen/oxyCODONE 325-5 MG Tab PO ONE (05:03)
[2016-12-04] MEDS ORDERED: Triamcinolone Acetonide 40 MG/ML 1 ML MDV INJECT ONE (05:04)
== END 2016-12-04 05:27 | disposition home or self-care (01) ==
LOC: JP.ED 04:21
DX: M19.041 Primary osteoarthritis, right hand (principal); I25.2 Old myocardial infarction; E78.00 Pure hypercholesterolemia, unspecified; K21.9 Gastro-esophageal reflux disease without esophagitis; E11.40 Type 2 diabetes mellitus with diabetic neuropathy, unspecified; F17.210 Nicotine dependence, cigarettes, uncomplicated; Z90.49 Acquired absence of other specified parts of digestive tract; Z98.890 Other specified postprocedural states; Z79.4 Long term (current) use of insulin; Z79.82 Long term (current) use of aspirin; Z79.899 Other long term (current) drug therapy; Z88.8 Allergy status to other drugs, medicaments and biological substances
CPT/HCPCS: 96372; 99283; A9270; J3301

== ENCOUNTER 2017-01-17 00:38 | Emergency (ER) | payer OTHER ==
[2017-01-17 00:54] VITALS: BP 120/72
[2017-01-17] MEDS ORDERED: Triamcinolone Acetonide 40 MG/ML 1 ML MDV INJECT PRN (01:03)
--- NOTE | 2017-01-17 01:19 | EDM.PDOC ---
ED HPI GENERAL MEDICAL PROBLEM - General Chief Complaint: Lower Extremity Injury/Pain Stated Complaint: L LEG PAIN Time Seen by Provider: 01/17/17 00:42 Source of Information: Reports: Patient History Limitations: Reports: No Limitations - History of Present Illness INITIAL COMMENTS - FREE TEXT/NARRATIVE: History of present illness: [46-year-old male presenting with several days of left-sided hip pain radiating down the left lateral aspect of his leg down to his knee. He is working currently too skinny more and more difficult for him to work. The history of diabetes mellitus long-standing and is on insulin for that type II. History of peripheral neuropathy his gabapentin. He's never had pain like this before. He does not have low back pain that starts in the region of the greater: Catheter of the left hip and then radiates down her history of fevers or chills with this he walks with a limp because of the pain] Review of systems: As per history of present illness and below otherwise all systems reviewed and negative. Past medical history: As per history of present illness and as reviewed below otherwise noncontributory. Surgical history: As per history of present illness and as reviewed below otherwise noncontributory. Social history: No reported history of drug or alcohol abuse. Family history: As per history of present illness and as reviewed below otherwise noncontributory. Physical exam: HEENT: Atraumatic, normocephalic, Lungs: Clear to auscultation, breath sounds equal bilaterally Heart: S1S2, regular, negative for clicks, rubs, or JVD. Abdomen: Soft, nondistended, nontender. Negative for masses or hepatosplenomegaly. Negative for costovertebral tenderness. Extremities: Examination of the left lower extremity does show his point of maximal tenderness is the region of the greater trochanter of the left hip he does state that he can lay on that side any more because it hurts. Neuro: Awake, alert, oriented.\ Exam nonfocal. Diagnostics: [] Therapeutics: [We discussed options for treatment for his presumed greater trochanteric bursitis and he elected to go with an injection. I did inject this area with 1 mL of 40 mg/mL of Kenalog and 3 mL of lidocaine 1% without epinephrine. A 21- gauge needle angina half long. He tolerated the procedure well and did feel some pain relief after this injection. The area was cleansed to prior to the injection] Impression: [Right greater trochanteric bursitis] Plan: [Dr. Anna is his physician and he will follow-up with him his pain persists.] Definitive disposition and diagnosis as appropriate pending reevaluation and review of above. left leg Pain Score (Numeric/FACES): 10 - Related Data Allergies Allergy/AdvReac Type Severity Reaction Status Date / Time diazepam [From Valium] Allergy Swelling Verified 01/17/17 00:48 Home Meds: Home Meds Gabapentin [Gabapentin] 1,200 mg PO BID 08/10/13 [History] Insulin Glarg,Human.Rec.Analog [Lantus Solostar] 30 units SUBCNJ BID 08/10/13 [ History] Ascorbate Calcium [Vitamin C] 500 mg PO DAILY 10/29/15 [History] Aspirin [Halfprin] 81 mg PO DAILY 10/29/15 [History] Dulaglutide [Trulicity] 1.5 mg SQ WEEKLY 10/29/15 [History] Famotidine [Take Home: Famotidine 20 MG, 3 Tab Pack] 20 mg PO BID 01/07/16 [ History] Cyanocobalamin (Vitamin B-12) [B-12] 1,000 mcg PO DAILY 08/03/16 [History] Lisinopril 2.5 mg PO BID 09/11/16 [History] Metoprolol Tartrate 25 mg PO BID 09/11/16 [History] atorvaSTATin [Lipitor] 40 mg PO BEDTIME 09/11/16 [History] Acetaminophen [Tylenol] 1,000 mg PO ASDIRECTED PRN 12/04/16 [History] Past Medical History HEENT History: Reports: Impaired Vision Cardiovascular History: Reports: High Cholesterol, [place], Stents Respiratory History: Reports: None Gastrointestinal History: Reports: GERD Genitourinary History: Reports: Other (See Below) Other Genitourinary History: erectile dysfunction Musculoskeletal History: Reports: Fracture Other Musculoskeletal History: repetitive motion disorder. SI joint pain. piriformis syndrome Neurological History: Reports: Head Trauma, Neuropathy, Diabetic Other Neuro History: insomnia. charcot foot due to DM. diabetic poluneuropathy Psychiatric History: Reports: Depression Endocrine/Metabolic History: Reports: Diabetes, Type II Hematologic History: Reports: None Immunologic History: Reports: None Oncologic (Cancer) History: Reports: None Dermatologic History: Reports: None - Infectious Disease History Infectious Disease History: Reports: Chicken Pox - Past Surgical History Head Surgeries/Procedures: Reports: None HEENT Surgical History: Reports: Other (See Below) Other HEENT Surgeries/Procedures: blocked salivary duct Respiratory Surgical History: Reports: None GI Surgical History: Reports: Appendectomy, Cholecystectomy, EGD, Hernia, Inguinal, Hernia Repair/Other Oncologic Surgical History: Reports: None Dermatological Surgical History: Reports: None Social & Family History - Family History Endocrine/Metabolic: Reports: Diabetes, type II Oncologic: Reports: Breast, Renal - Tobacco Use Smoking Status *Q: Current Every Day Smoker Years of Tobacco use: 30 Packs/Tins Daily: 0.5 Used Tobacco, but Quit: No Second Hand Smoke Exposure: Yes - Caffeine Use Caffeine Use: Reports: Coffee - Alcohol Use Days Per Week of Alcohol Use: 0 - Recreational Drug Use Recreational Drug Use: No Review of Systems - Review of Systems Review Of Systems: ROS reveals no pertinent complaints other than HPI. ED EXAM, GENERAL - Physical Exam Exam: See Below Course - Vital Signs Last Recorded V/S: Last Vital Signs Temp 36.6 C 01/17/17 00:48 Pulse 98 01/17/17 00:48 Resp 16 01/17/17 00:48 BP 120/72 01/17/17 00:48 Pulse Ox 97 01/17/17 00:48 Departure - Departure Time of Disposition: 01:23 Disposition: Home, Self-Care 01 Condition: Good Clinical Impression: Greater trochanteric bursitis of right hip - Discharge Information Referrals: Sam Montes MD [Primary Care Provider] - Additional Instructions: As per our discussion it would probably be good to follow-up with Dr. Montes if you are not improving after this injection.
== END 2017-01-17 01:40 | disposition home or self-care (01) ==
LOC: JP.ED 00:38
DX: M70.62 Trochanteric bursitis, left hip (principal); I25.2 Old myocardial infarction; E78.00 Pure hypercholesterolemia, unspecified; K21.9 Gastro-esophageal reflux disease without esophagitis; E11.40 Type 2 diabetes mellitus with diabetic neuropathy, unspecified; F17.210 Nicotine dependence, cigarettes, uncomplicated; E66.9 Obesity, unspecified; Z68.29 Body mass index [BMI] 29.0-29.9, adult; Z90.49 Acquired absence of other specified parts of digestive tract; Z98.890 Other specified postprocedural states; Z79.899 Other long term (current) drug therapy; Z95.5 Presence of coronary angioplasty implant and graft; Z79.4 Long term (current) use of insulin; Z79.82 Long term (current) use of aspirin; Z88.8 Allergy status to other drugs, medicaments and biological substances
CPT/HCPCS: 99283; J3301

== ENCOUNTER 2017-01-17 09:13 | Emergency (ER) | payer OTHER ==
[2017-01-17 09:21] VITALS: BP 143/85
[2017-01-17] MEDS ORDERED: Ketorolac 60 MG/2 ML SDV IM ONE (09:43)
--- NOTE | 2017-01-17 09:46 | EDM.PDOC ---
ED HPI GENERAL MEDICAL PROBLEM - General Chief Complaint: Lower Extremity Injury/Pain Stated Complaint: PAIN IN THE HIP AREA Time Seen by Provider: 01/17/17 09:30 Source of Information: Reports: Patient, EMS, Family History Limitations: Reports: No Limitations - History of Present Illness INITIAL COMMENTS - FREE TEXT/NARRATIVE: 46-year-old male with a left hip and groin pain for the past several days, brought in by ambulance after failing outpatient treatment following an injection into the left greater trochanteric bursa. This injection was given just 8 hours ago. He went home and couldn't sleep and this morning is having difficulty bearing weight or walking so came back in. No fevers or chills, no swelling of the lower extremity, no recent trauma other than tripping at work several days ago but not falling. No rash. Quality: Reports: Sharp, Stabbing Severity: Moderate Worsens with: Reports: Movement (Movement of the left leg causes increased pain) Associated Symptoms: Reports: No Other Symptoms hip Pain Score (Numeric/FACES): 10 - Related Data Allergies Allergy/AdvReac Type Severity Reaction Status Date / Time diazepam [From Valium] Allergy Swelling Verified 01/17/17 09:24 Home Meds: Home Meds Gabapentin [Gabapentin] 1,200 mg PO BID 08/10/13 [History] Insulin Glarg,Human.Rec.Analog [Lantus Solostar] 30 units SUBCNJ BID 08/10/13 [ History] Ascorbate Calcium [Vitamin C] 500 mg PO DAILY 10/29/15 [History] Aspirin [Halfprin] 81 mg PO DAILY 10/29/15 [History] Dulaglutide [Trulicity] 1.5 mg SQ WEEKLY 10/29/15 [History] Famotidine [Take Home: Famotidine 20 MG, 3 Tab Pack] 20 mg PO BID 01/07/16 [ History] Cyanocobalamin (Vitamin B-12) [B-12] 1,000 mcg PO DAILY 08/03/16 [History] Lisinopril 2.5 mg PO BID 09/11/16 [History] Metoprolol Tartrate 25 mg PO BID 09/11/16 [History] atorvaSTATin [Lipitor] 40 mg PO BEDTIME 09/11/16 [History] Acetaminophen [Tylenol] 1,000 mg PO ASDIRECTED PRN 07/29/17 [History] Past Medical History HEENT History: Reports: Impaired Vision Cardiovascular History: Reports: High Cholesterol, [place], Stents Respiratory History: Reports: None Gastrointestinal History: Reports: GERD Genitourinary History: Reports: Other (See Below) Other Genitourinary History: erectile dysfunction Musculoskeletal History: Reports: Fracture Other Musculoskeletal History: repetitive motion disorder. SI joint pain. piriformis syndrome Neurological History: Reports: Head Trauma, Neuropathy, Diabetic Other Neuro History: insomnia. charcot foot due to DM. diabetic poluneuropathy Psychiatric History: Reports: Depression Endocrine/Metabolic History: Reports: Diabetes, Type II Hematologic History: Reports: None Immunologic History: Reports: None Oncologic (Cancer) History: Reports: None Dermatologic History: Reports: None - Infectious Disease History Infectious Disease History: Reports: Chicken Pox - Past Surgical History Head Surgeries/Procedures: Reports: None HEENT Surgical History: Reports: Other (See Below) Other HEENT Surgeries/Procedures: blocked salivary duct Respiratory Surgical History: Reports: None GI Surgical History: Reports: Appendectomy, Cholecystectomy, EGD, Hernia, Inguinal, Hernia Repair/Other Oncologic Surgical History: Reports: None Dermatological Surgical History: Reports: None Social & Family History - Family History Endocrine/Metabolic: Reports: Diabetes, type II Oncologic: Reports: Breast, Renal - Tobacco Use Smoking Status *Q: Current Every Day Smoker Years of Tobacco use: 30 Packs/Tins Daily: 0.5 Used Tobacco, but Quit: No Second Hand Smoke Exposure: Yes - Caffeine Use Caffeine Use: Reports: Coffee - Alcohol Use Days Per Week of Alcohol Use: 0 - Recreational Drug Use Recreational Drug Use: No Review of Systems - Review of Systems Review Of Systems: See Below Constitutional: Denies: Fever Respiratory: Reports: No Symptoms Cardiovascular: Reports: No Symptoms GI/Abdominal: Reports: No Symptoms Genitourinary: Reports: No Symptoms Skin: Reports: No Symptoms Neurological: Denies: Paresthesia, Weakness Psychiatric: Reports: No Symptoms ED EXAM, GENERAL - Physical Exam Exam: See Below Exam Limited By: No Limitations General Appearance: Alert, No Apparent Distress (No distress when laying still) Respiratory/Chest: No Respiratory Distress, Lungs Clear Cardiovascular: Regular Rate, Rhythm Extremities: Other (Exam is otherwise limited to the lower extremities. He has no asymmetry of the right or left leg, no peripheral edema or rashes. He has intense deep left hip and groin pain with movement of the left hip, also tenderness to palpation over the greater trochanteric area) Course - Vital Signs Last Recorded V/S: Last Vital Signs Temp 97.5 F 01/17/17 09:19 Pulse 101 H 01/17/17 09:19 Resp 16 01/17/17 09:19 BP 143/85 H 01/17/17 09:19 Pulse Ox 98 01/17/17 09:19 - Orders/Labs/Meds Meds: Medications Discontinued Medications Generic Name Dose Route Start Last Admin Trade Name Frakni PRN Reason Stop Dose Admin Ketorolac Tromethamine 60 mg 01/17/17 09:43 01/17/17 09:47 Toradol IM 01/17/17 09:44 60 mg ONETIME ONE Administration - Re-Assessments/Exams Free Text/Narrative Re-Assessment/Exam: 01/17/17 10:48 Patient was given 60 mg of Toradol IM, followed by an x-ray of the pelvis and left hip. The x-rays were normal and the Toradol did help. He has crutches at home, so I will discharge him with 10 doses of Toradol, 10 oxycodone and encouraged him to use crutches for the next day or 2 but increase activity as soon as tolerated. He can recheck with orthopedics on if not improving satisfactorily despite treatment. Departure - Departure Time of Disposition: 10:58 Disposition: Home, Self-Care 01 Condition: Good Clinical Impression: Acute pain of left hip - Discharge Information Instructions: Hip Pain Referrals: Sam Montes MD [Primary Care Provider] - Forms: ED Department Discharge Care Plan Goals: Use medications as prescribed and increase activity as tolerated. Recheck on if not improving satisfactorily. Use crutches initially but try to ambulate without crutches as soon as possible.
--- NOTE | 2017-01-17 11:47 | CR ---
No fracture. There is least mild joint space loss left hip. Ossific triangle density which could nick doyle loose body within the left hip measuring 7 mm. CAM-type femoral acetabular impingement both hips .
== END 2017-01-17 10:58 | disposition home or self-care (01) ==
LOC: JP.ED 09:13
DX: M25.552 Pain in left hip (principal); E11.40 Type 2 diabetes mellitus with diabetic neuropathy, unspecified; E78.00 Pure hypercholesterolemia, unspecified; I25.2 Old myocardial infarction; K21.9 Gastro-esophageal reflux disease without esophagitis; F17.210 Nicotine dependence, cigarettes, uncomplicated; E66.9 Obesity, unspecified; Z68.29 Body mass index [BMI] 29.0-29.9, adult; Z90.49 Acquired absence of other specified parts of digestive tract; Z98.890 Other specified postprocedural states; Z95.5 Presence of coronary angioplasty implant and graft; Z79.4 Long term (current) use of insulin; Z88.8 Allergy status to other drugs, medicaments and biological substances; Z79.899 Other long term (current) drug therapy; M70.62 Trochanteric bursitis, left hip; Z79.82 Long term (current) use of aspirin
CPT/HCPCS: 73501; 96372; 99283; J1885; J3301

== ENCOUNTER 2017-03-31 10:28 | Emergency (ER) | payer OTHER ==
[2017-03-31 10:51] VITALS: BP 123/84
--- NOTE | 2017-03-31 11:40 | EDM.PDOC ---
ED HPI GENERAL MEDICAL PROBLEM - General Chief Complaint: Lower Extremity Injury/Pain Stated Complaint: LT HAND PAIN Time Seen by Provider: 03/31/17 11:20 Source of Information: Reports: Patient History Limitations: Reports: No Limitations - History of Present Illness INITIAL COMMENTS - FREE TEXT/NARRATIVE: 47-year-old male who woke up with left wrist pain this morning, it started hurting in the middle of the night and made it difficult sleeping. No trauma, no swelling, no deformity. Onset: Gradual (Sometime overnight) Location: Reports: Upper Extremity, Left Severity: Mild Worsens with: Reports: Movement - Related Data Allergies Allergy/AdvReac Type Severity Reaction Status Date / Time diazepam [From Valium] Allergy Swelling Verified 03/31/17 10:57 Home Meds: Home Meds Gabapentin [Gabapentin] 1,200 mg PO BID 08/10/13 [History] Insulin Glarg,Human.Rec.Analog [Lantus Solostar] 30 units SUBCNJ BID 08/10/13 [ History] Ascorbate Calcium [Vitamin C] 500 mg PO DAILY 10/29/15 [History] Aspirin [Halfprin] 81 mg PO DAILY 10/29/15 [History] Dulaglutide [Trulicity] 1.5 mg SQ WEEKLY 10/29/15 [History] Famotidine [Take Home: Famotidine 20 MG, 3 Tab Pack] 20 mg PO BID 01/07/16 [ History] Cyanocobalamin (Vitamin B-12) [B-12] 1,000 mcg PO DAILY 08/03/16 [History] Lisinopril 2.5 mg PO BID 09/11/16 [History] Metoprolol Tartrate 25 mg PO BID 09/11/16 [History] atorvaSTATin [Lipitor] 40 mg PO BEDTIME 09/11/16 [History] Past Medical History HEENT History: Reports: Impaired Vision Cardiovascular History: Reports: High Cholesterol, [place], Stents Respiratory History: Reports: None Gastrointestinal History: Reports: GERD Genitourinary History: Reports: Other (See Below) Other Genitourinary History: erectile dysfunction Musculoskeletal History: Reports: Fracture Other Musculoskeletal History: repetitive motion disorder. SI joint pain. piriformis syndrome Neurological History: Reports: Head Trauma, Neuropathy, Diabetic Other Neuro History: insomnia. charcot foot due to DM. diabetic poluneuropathy Psychiatric History: Reports: Depression Endocrine/Metabolic History: Reports: Diabetes, Type II Hematologic History: Reports: Blood Transfusion(s) Immunologic History: Reports: None Oncologic (Cancer) History: Reports: None Dermatologic History: Reports: None - Infectious Disease History Infectious Disease History: Reports: Chicken Pox - Past Surgical History Head Surgeries/Procedures: Reports: None HEENT Surgical History: Reports: Other (See Below) Other HEENT Surgeries/Procedures: blocked salivary duct Cardiovascular Surgical History: Reports: Coronary Artery Stent, Percutaneous Transluminal Angioplasty Respiratory Surgical History: Reports: None GI Surgical History: Reports: Appendectomy, Cholecystectomy, EGD, Hernia, Inguinal, Hernia Repair/Other Musculoskeletal Surgical History: Reports: Other (See Below) Other Musculoskeletal Surgeries/Procedures:: 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 Oncologic Surgical History: Reports: None Dermatological Surgical History: Reports: None Social & Family History - Family History Endocrine/Metabolic: Reports: Diabetes, type II Oncologic: Reports: Breast, Renal - Tobacco Use Smoking Status *Q: Current Every Day Smoker Years of Tobacco use: 31 Packs/Tins Daily: 0.5 Used Tobacco, but Quit: No Second Hand Smoke Exposure: Yes - Caffeine Use Caffeine Use: Reports: Coffee - Alcohol Use Days Per Week of Alcohol Use: 0 - Recreational Drug Use Recreational Drug Use: No Review of Systems - Review of Systems Review Of Systems: See Below Constitutional: Denies: Fever Respiratory: Reports: No Symptoms Musculoskeletal: Reports: Other (Had recent right foot surgery, and is also being treated for persistent right knee pain and recently had a left hip bursitis) ED EXAM, GENERAL - Physical Exam Exam: See Below Exam Limited By: No Limitations General Appearance: Alert, No Apparent Distress Respiratory/Chest: No Respiratory Distress Extremities: Other (Patient is wearing a walking boot on the right foot from recent surgery. The rest of his exam is limited to the wrists, which are symmetric. The left wrist is sore to palpation but there is no deformity, swelling or bruising.) Course - Vital Signs Last Recorded V/S: Last Vital Signs Temp 96.8 F 03/31/17 11:05 Pulse 83 03/31/17 11:05 Resp 18 03/31/17 11:05 BP 123/84 03/31/17 11:05 Pulse Ox 97 03/31/17 11:05 - Orders/Labs/Meds Orders: Active Orders 24 hr Category Date Time Status Wrist Comp Min 3V Lt [CR] Stat Exams 03/31/17 11:21 Taken - Re-Assessments/Exams Free Text/Narrative Re-Assessment/Exam: 03/31/17 11:37 An x-ray of the left wrist was obtained. He was normal. A three-inch Lorne wrap was applied to the wrist and he has a recheck appointment with his primary physician tomorrow, he can discuss the wrist with him at that time if still hurting. Departure - Departure Time of Disposition: 12:07 Disposition: Home, Self-Care 01 Condition: Good Clinical Impression: Left wrist tendonitis - Discharge Information Instructions: Tendinitis, [id number] Referrals: Sam Montes MD [Primary Care Provider] - Forms: ED Department Discharge Care Plan Goals: Wear Lorne wrap for support, ice may help as well as ibuprofen or naproxen. Recheck tomorrow as scheduled. - My Orders Last 24 Hours: My Active Orders 03/31/17 11:21 Wrist Comp Min 3V Lt [CR] Stat - Assessment/Plan Last 24 Hours: My Active Orders 03/31/17 11:21 Wrist Comp Min 3V Lt [CR] Stat
--- NOTE | 2017-04-01 09:02 | CR ---
Wrist Comp Min 3V Lt HISTORY: Pain COMPARISON: None FINDINGS: No fracture or dislocation. No bony destructive process seen.
== END 2017-03-31 12:07 | disposition home or self-care (01) ==
LOC: JP.ED 10:28
DX: M77.9 Enthesopathy, unspecified (principal); E11.40 Type 2 diabetes mellitus with diabetic neuropathy, unspecified; F17.210 Nicotine dependence, cigarettes, uncomplicated; E78.00 Pure hypercholesterolemia, unspecified; Z79.899 Other long term (current) drug therapy; Z79.4 Long term (current) use of insulin; Z88.8 Allergy status to other drugs, medicaments and biological substances
CPT/HCPCS: 73110-26-LT; 73110-LT; 99284

== ENCOUNTER 2017-07-18 04:55 | Emergency (ER) | payer OTHER ==
[2017-07-18 05:16] VITALS: BP 138/80
[2017-07-18] MEDS ORDERED: Ketorolac 60 MG/2 ML SDV IM ONE (05:27)
--- NOTE | 2017-07-18 05:33 | EDM.PDOC ---
ED HPI GENERAL MEDICAL PROBLEM - General Chief Complaint: Lower Extremity Injury/Pain Stated Complaint: MEDICAL VIA [facility] Time Seen by Provider: 07/18/17 05:18 Source of Information: Reports: Patient, RN Notes Reviewed History Limitations: Reports: No Limitations - History of Present Illness INITIAL COMMENTS - FREE TEXT/NARRATIVE: 47-year-old gentleman presents emergency department day complaint of left knee pain, he states he's had pain for the last 5 months however this morning it got significantly worse. He does work at [employer] in the [employer] section or he does a lot of lifting and bending. He states the pain initially started on Tuesday and then progressively got worse through the night tonight last try Tylenol about 4-1/2 hours ago with minimal relief denies any numbness and tingling no redness he does have a little bit of swelling around the knee, Treatments DIRECTOR OF RECRUITMENT AND ADMISSIONS: Reports: Acetaminophen, Cold Therapy Left Knee Pain Score (Numeric/FACES): 10 - Related Data Allergies Allergy/AdvReac Type Severity Reaction Status Date / Time diazepam [From Valium] Allergy Swelling Verified 07/18/17 05:00 Home Meds: Home Meds Gabapentin [Gabapentin] 1,200 mg PO BID 08/10/13 [History] Insulin Glarg,Human.Rec.Analog [Lantus Solostar] 35 units SUBCNJ BID 08/10/13 [ History] Ascorbate Calcium [Vitamin C] 500 mg PO DAILY 10/29/15 [History] Aspirin [Halfprin] 81 mg PO DAILY 10/29/15 [History] Dulaglutide [Trulicity] 1.5 mg SQ WEEKLY 10/29/15 [History] Famotidine [Take Home: Famotidine 20 MG, 3 Tab Pack] 20 mg PO BID 01/07/16 [ History] Cyanocobalamin (Vitamin B-12) [B-12] 1,000 mcg PO DAILY 08/03/16 [History] Lisinopril 2.5 mg PO DAILY 09/11/16 [History] Metoprolol Tartrate 25 mg PO DAILY 09/11/16 [History] atorvaSTATin [Lipitor] 40 mg PO BEDTIME 09/11/16 [History] Acetaminophen [Tylenol] 325 mg PO ASDIRECTED PRN 07/18/17 [History] Amoxicillin/Clavulanate K [Augmentin 875-125 MG] 1 tab PO DAILY 07/18/17 [ History] Ticagrelor [Brilinta] 90 mg PO BID 07/18/17 [History] Past Medical History HEENT History: Reports: Impaired Vision Cardiovascular History: Reports: CAD, High Cholesterol, [place], Stents Gastrointestinal History: Reports: GERD Genitourinary History: Reports: Other (See Below) Other Genitourinary History: erectile dysfunction Musculoskeletal History: Reports: Fracture Other Musculoskeletal History: repetitive motion disorder. SI joint pain. piriformis syndrome Neurological History: Reports: Head Trauma, Neuropathy, Diabetic Other Neuro History: insomnia. charcot foot due to DM. diabetic poluneuropathy Psychiatric History: Reports: Depression Endocrine/Metabolic History: Reports: Diabetes, Type II Hematologic History: Reports: Blood Transfusion(s) - Infectious Disease History Infectious Disease History: Reports: Chicken Pox - Past Surgical History HEENT Surgical History: Reports: Other (See Below) Other HEENT Surgeries/Procedures: blocked salivary duct Cardiovascular Surgical History: Reports: Coronary Artery Stent, Percutaneous Transluminal Angioplasty Respiratory Surgical History: Reports: None GI Surgical History: Reports: Appendectomy, Cholecystectomy, EGD, Hernia, Inguinal, Hernia Repair/Other Musculoskeletal Surgical History: Reports: Other (See Below) Other Musculoskeletal Surgeries/Procedures:: 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 Oncologic Surgical History: Reports: None Dermatological Surgical History: Reports: None Social & Family History - Family History Endocrine/Metabolic: Reports: Diabetes, type II Oncologic: Reports: Breast, Renal - Tobacco Use Smoking Status *Q: Never Smoker Years of Tobacco use: 31 Packs/Tins Daily: 0.5 Used Tobacco, but Quit: No Second Hand Smoke Exposure: No - Caffeine Use Caffeine Use: Reports: None - Alcohol Use Days Per Week of Alcohol Use: 0 - Recreational Drug Use Recreational Drug Use: No Review of Systems - Review of Systems Review Of Systems: See Below Musculoskeletal: Reports: Joint Pain (Left knee pain) Skin: Reports: No Symptoms Neurological: Reports: No Symptoms ED EXAM, GENERAL - Physical Exam Exam: See Below Free Text/Narrative:: Examination of left knee I do appreciate a trace edema there is no erythema present difficult to do an exam as he has excruciating pain while lifting his sweatpants above his kneecap there is tenderness to palpation both medial joint line and lateral joint line I cannot do any exam that does any movement of the ligaments without excruciating pain Exam Limited By: No Limitations General Appearance: Alert, Mild Distress Course - Vital Signs Last Recorded V/S: Last Vital Signs Temp 98.1 F 07/18/17 05:16 Pulse 96 07/18/17 05:16 Resp 17 07/18/17 05:16 BP 138/80 07/18/17 05:16 Pulse Ox 98 07/18/17 05:16 - Orders/Labs/Meds Meds: Medications Discontinued Medications Generic Name Dose Route Start Last Admin Trade Name Franki PRN Reason Stop Dose Admin Ketorolac Tromethamine 60 mg 07/18/17 05:27 07/18/17 05:33 Toradol IM 07/18/17 05:28 60 mg ONETIME ONE Administration Departure - Departure Time of Disposition: 06:17 Disposition: Home, Self-Care 01 Condition: Good Clinical Impression: Left knee pain Qualifiers: Chronicity: chronic Qualified Code(s): M25.562 - Pain in left knee; G89.29 - Other chronic pain; G89.29 - Other chronic pain - Discharge Information Referrals: PCP,None [Primary Care Provider] - Forms: ED Department Discharge Additional Instructions: Continue to use ibuprofen for baseline pain control, use hydrocodone for breakthrough pain, please follow-up with orthopedics this week - Assessment/Plan Plan: Assessment Acuity = chronic Site and laterality = left knee pain Etiology = secondary to repetitive motion Manifestations = none Location of injury = Home Lab values = none Plan He had good relief with the Toradol injection, prescription written for hydrocodone 5/325 one tab by mouth 3 times a day when necessary total #6 consultation set up with orthopedics this week This note was dictated using [email or web address] voice recognition software please call with any questions on syntax or elizabeth.
== END 2017-07-18 06:29 | disposition home or self-care (01) ==
LOC: JP.ED 04:55
DX: G89.29 Other chronic pain (principal); M25.562 Pain in left knee; E78.00 Pure hypercholesterolemia, unspecified; I25.2 Old myocardial infarction; E11.9 Type 2 diabetes mellitus without complications; K21.9 Gastro-esophageal reflux disease without esophagitis; Z88.8 Allergy status to other drugs, medicaments and biological substances; Z79.4 Long term (current) use of insulin; Z79.899 Other long term (current) drug therapy
CPT/HCPCS: 96372; 99283; J1885